=== PATIENT | female | born 1950 | race Caucasian/White ===

== ENCOUNTER 2021-10-04 09:25 | Outpatient (CLI) | payer MEDICARE | END 2021-10-04 09:26 | disposition home or self-care (01) | LOC: CSHCT 09:25 | PROVIDERS: ATTEND Urology | DX: R31.29 Other microscopic hematuria (principal); N13.2 Hydronephrosis with renal and ureteral calculous obstruction; R93.89 Abnormal findings on diagnostic imaging of other specified body structures; K83.9 Disease of biliary tract, unspecified; K80.20 Calculus of gallbladder without cholecystitis without obstruction; K57.30 Diverticulosis of large intestine without perforation or abscess without bleeding; N83.8 Other noninflammatory disorders of ovary, fallopian tube and broad ligament; K44.9 Diaphragmatic hernia without obstruction or gangrene | CPT/HCPCS: 74178 ==

== ENCOUNTER 2021-10-18 12:14 | Outpatient (CLI) | payer MEDICARE | END 2021-10-18 12:15 | disposition home or self-care (01) | LOC: CSHCT 12:14 | PROVIDERS: ATTEND Urology | DX: N20.0 Calculus of kidney (principal); Z96.0 Presence of urogenital implants; R19.03 Right lower quadrant abdominal swelling, mass and lump; K44.9 Diaphragmatic hernia without obstruction or gangrene | CPT/HCPCS: 74176 ==

== ENCOUNTER 2022-03-26 10:06 | Outpatient (CLI) | payer MEDICARE | END 2022-03-26 10:07 | disposition home or self-care (01) | LOC: CSHMAMMO 10:06 | PROVIDERS: ATTEND Family Medicine | DX: Z12.31 Encounter for screening mammogram for malignant neoplasm of breast (principal) | CPT/HCPCS: 77063; 77067 ==

== ENCOUNTER 2022-04-13 15:31 | Outpatient (CLI) | payer MEDICARE | END 2022-04-13 15:32 | disposition home or self-care (01) | LOC: CSHULT 15:31 | PROVIDERS: ATTEND Urology | DX: N20.0 Calculus of kidney (principal); K31.0 Acute dilatation of stomach | CPT/HCPCS: 74018; 76770 ==

== ENCOUNTER 2022-06-15 06:58 | Day surgery (SDC) | payer MEDICARE ==
[2022-06-13 14:39] VITALS: BMI 29.9
[2022-06-15 07:53] LABS: Anion Gap 16 mmol/L (10-20); BUN (Urea Nitrogen) 10 mg/dL (9.8-20.1); Calc. Creatinine Clearance 63 mL/min (70-130); Calcium 9.7 mg/dL (7.8-10.44); Carbon Dioxide 24 mmol/L (23-31); Chloride 103 mmol/L (98-107); Estimated GFR 57; Glucose 115 mg/dL (83-110); Sodium 139 mmol/L (136-145)
[2022-06-15] MEDS ORDERED: PROPOFOL 20 ML ONE (08:13)
[2022-06-15] MEDS ORDERED: Lidocaine 1% MPF 2 ML VIAL ONE (08:14)
[2022-06-18] MEDS ORDERED: FLU VACC QS2022-23(65YR UP)/PF 240 MCG/0.7 ML SYRINGE IM ONE (08:00)
[2022-06-18 11:03] VITALS: BP 136/69; TEMP 97.7
== END 2022-06-15 10:10 | disposition home or self-care (01) ==
LOC: CSHSDC 06:58
PROVIDERS: ATTEND Specialist
DX: I48.19 Other persistent atrial fibrillation (principal); I48.0 Paroxysmal atrial fibrillation; I10 Essential (primary) hypertension; I34.0 Nonrheumatic mitral (valve) insufficiency; E78.2 Mixed hyperlipidemia; I27.21 Secondary pulmonary arterial hypertension; E66.9 Obesity, unspecified; Z68.30 Body mass index [BMI] 30.0-30.9, adult; Z86.711 Personal history of pulmonary embolism; Z79.01 Long term (current) use of anticoagulants; Z79.899 Other long term (current) drug therapy
CPT/HCPCS: 80048; 92960; 93005; 93010; J2704

== ENCOUNTER 2022-07-31 10:14 | Outpatient (CLI) | payer MEDICARE | END 2022-07-31 10:15 | disposition home or self-care (01) | LOC: CSHMAMMO 10:14 | PROVIDERS: ATTEND Family Medicine | DX: Z13.820 Encounter for screening for osteoporosis (principal); E28.39 Other primary ovarian failure; M85.89 Other specified disorders of bone density and structure, multiple sites; Z78.0 Asymptomatic menopausal state | CPT/HCPCS: 77080 ==

== ENCOUNTER → 2022-11-27 | Day surgery (SDC) | payer MEDICARE ==
[~2022-11-27] MED LIST: Glycopyrrolate 0.2 MG/ML 5 ML SYRINGE ONE; Lidocaine 1% (PF) 30 ML VIAL ONE; PHENYLEPHRINE-NS 100 MCG/ML 10 ML SYRINGE ONE; PROPOFOL 20 ML ONE
[2022-11-27 08:47] LABS: Anion Gap 17 mmol/L (10-20); BUN (Urea Nitrogen) 11 mg/dL (9.8-20.1); Calc. Creatinine Clearance 0 mL/min (70-130); Carbon Dioxide 24 mmol/L (23-31); Chloride 105 mmol/L (98-107); Estimated GFR 51; Glucose 116 mg/dL (83-110); Potassium 4.5 mmol/L (3.5-5.1); Sodium 141 mmol/L (136-145)
[2022-11-27 08:59] LABS: INR-International Normal Ratio 3.4; PTT 37.9 sec (22.0-33.0); Prothrombin Time 36.3 sec (9.5-12.1)
== END ==
LOC: CSHSDC 08:02
PROVIDERS: ATTEND Specialist
DX: I48.11 Longstanding persistent atrial fibrillation (principal); I10 Essential (primary) hypertension; E78.2 Mixed hyperlipidemia; I34.0 Nonrheumatic mitral (valve) insufficiency; Z79.01 Long term (current) use of anticoagulants; Z79.899 Other long term (current) drug therapy
CPT/HCPCS: 80048; 85610; 85730; 92960; 93005; 93010; J2001; J2704

== ENCOUNTER 2023-02-01 19:48 | Inpatient (IN) | payer MEDICARE ==
[2023-02-01 21:04] LABS: ALT (SGPT) 11 U/L (8-55); AST (SGOT) 16 U/L (5-34); Albumin 3.8 g/dL (3.4-4.8); Alkaline Phosphatase 92 U/L (40-110); Anion Gap 19 mmol/L (10-20); BUN (Urea Nitrogen) 27 mg/dL (9.8-20.1); Bilirubin, Total 1.5 mg/dL (0.2-1.2); Calc. Creatinine Clearance 0 mL/min (70-130); Calcium 10.1 mg/dL (7.8-10.44); Carbon Dioxide 19 mmol/L (23-31); Chloride 104 mmol/L (98-107); Estimated GFR 31; Globulin 2.6 g/dL (2.4-3.5); Glucose 156 mg/dL (83-110); Lipase 22 U/L (8-78); Magnesium 1.7 mg/dL (1.6-2.6); Potassium 5.7 mmol/L (3.5-5.1); Protein, Total 6.4 g/dL (5.8-8.1); Sodium 136 mmol/L (136-145)
[2023-02-01 21:05] LABS: #Basophils 0.1 10x3/uL (0.0-0.2); #Eosinphils 0.2 10x3/uL (0.0-0.5); #Monocytes 0.2 10x3/uL (0.0-1.1); #Neutrophils 6.5 10x3/uL (1.5-8.4); %Basophils 0.7 % (0.0-2.0); %Eosinophils 2.6 % (0.0-6.0); %Lymphocytes 13.8 % (18.0-47.0); %Monocytes 2.8 % (0.0-10.0); %Neutrophils 79.6 % (40.0-75.0); Hemoglobin 13.6 g/dL (12.0-15.5); Mean Corpuscular HGB CONC 30.1 g/dL (32.0-36.0); Mean Corpuscular Hemoglobin 26.1 pg (27.0-33.0); Mean Corpuscular Volume 86.6 fl (81.6-98.3); RBC Distribution Width 19.7 % (11.5-14.5); Red Blood Cell (RBC) Count 5.22 10x6/uL (3.90-5.03); White Blood Cell (WBC) Count 8.2 10x3/uL (3.5-10.5)
[2023-02-01 21:08] LABS: Prothrombin Time 63.7 sec (9.5-12.1)
[2023-02-01 21:12] LABS: Mean Platelet Volume 10.9 fl (7.4-10.4); Platelet Count 203 10x3/uL (150-450)
[2023-02-01 21:13] LABS: Platelet Clumps SLIGHT; RBC Morph Comment Within Normal Limits
[2023-02-01 21:14] LABS: Platelet Adequacy Comment PLT clumps seen-LOW
[2023-02-01 21:16] LABS: INR-International Normal Ratio 6.1
[2023-02-01 21:23] LABS: CKMB 1.3 ng/mL (0-6.6)
[2023-02-01] MEDS ORDERED: Ondansetron PF 4 MG/2 ML Vial IVP PRN (22:17)
[2023-02-01] MEDS ORDERED: Acetaminophen 325 MG TAB PO PRN (22:17)
[2023-02-01] MEDS ORDERED: Guaifenesin DM 100-10/5 ML UDCUP PO PRN (22:17)
[2023-02-01] MEDS ORDERED: Senokot S 8.6-50 MG TAB PO PRN (22:17)
[2023-02-01] MEDS ORDERED: HYDROcodone/Acetaminophen 5/325 mg Tablet PO PRN (22:17)
[2023-02-01] MEDS ORDERED: Calcium Carbonate 500 MG ChewTAB PO PRN (22:17)
[2023-02-01] MEDS ORDERED: traZODone HCl 50 MG TAB PO PRN (22:21)
[2023-02-01] MEDS ORDERED: Calcium Gluc 4.6 MEQ/10 ML (100 MG/ML) SLOW IVP SCH (22:30)
[2023-02-01] MEDS ORDERED: Sodium Chloride 0.9% 300 ML IV SCH (22:30)
[2023-02-01] MEDS ORDERED: Albumin 25% 25 GM/100 ML BOT IVPB SCH (22:30)
[2023-02-02] MEDS ORDERED: Calcium Gluc 4.6 MEQ/10 ML (100 MG/ML) ONE (00:25)
[2023-02-02] MEDS ORDERED: Albumin 25% 100 ML ONE (00:26)
[2023-02-02 03:26] LABS: Anion Gap 17 mmol/L (10-20); BUN (Urea Nitrogen) 29 mg/dL (9.8-20.1); CK (CPK) 34 U/L (29-168); Calc. Creatinine Clearance 39 mL/min (70-130); Carbon Dioxide 19 mmol/L (23-31); Chloride 106 mmol/L (98-107); Estimated GFR 33; Glucose 118 mg/dL (83-110); Potassium 5.6 mmol/L (3.5-5.1); Sodium 136 mmol/L (136-145)
[2023-02-02 03:39] LABS: INR-International Normal Ratio 5.4; PTT 33.2 sec (22.0-33.0); Prothrombin Time 56.5 sec (9.5-12.1)
[2023-02-02 03:48] LABS: Free T4 (Free Thyroxine) 1.3 ng/dL (0.70-1.48); Thyroid Stimulating Hormone 0.3788 uIU/mL (0.35-4.94)
[2023-02-02 03:53] LABS: #Monocytes 0.2 10x3/uL (0.0-1.1); #Neutrophils 5.5 10x3/uL (1.5-8.4); %Basophils 0.5 % (0.0-2.0); %Eosinophils 0.2 % (0.0-6.0); %Lymphocytes 13.5 % (18.0-47.0); %Monocytes 2.4 % (0.0-10.0); %Neutrophils 83.1 % (40.0-75.0); Hemoglobin 11.6 g/dL (12.0-15.5); Mean Corpuscular HGB CONC 30.5 g/dL (32.0-36.0); Mean Corpuscular Hemoglobin 25.7 pg (27.0-33.0); Mean Corpuscular Volume 84.3 fl (81.6-98.3); Mean Platelet Volume 11.6 fl (7.4-10.4); Platelet Count 148 10x3/uL (150-450); RBC Distribution Width 19.4 % (11.5-14.5); Red Blood Cell (RBC) Count 4.51 10x6/uL (3.90-5.03); White Blood Cell (WBC) Count 6.6 10x3/uL (3.5-10.5)
[2023-02-02 03:57] LABS: CKMB 0.9 ng/mL (0-6.6)
[2023-02-02 04:25] LABS: Platelet Clumps SLIGHT
[2023-02-02] MEDS ORDERED: Sotalol HCl 80 MG TAB PO SCH (09:45)
[2023-02-02] MEDS: Metoprolol Tartrate 25 MG TAB PO SCH ×2 (10:00→20:48)
[2023-02-02] MEDS: Gabapentin 100 MG CAP PO SCH ×2 (10:00→20:42)
[2023-02-02] MEDS ORDERED: Metoprolol Tartrate 25 MG TAB ONE (10:53)
[2023-02-02 11:20] LABS: Anion Gap 13 mmol/L (10-20); BUN (Urea Nitrogen) 31 mg/dL (9.8-20.1); Calc. Creatinine Clearance 39 mL/min (70-130); Calcium 10.1 mg/dL (7.8-10.44); Carbon Dioxide 20 mmol/L (23-31); Chloride 105 mmol/L (98-107); Estimated GFR 33; Glucose 111 mg/dL (83-110); Sodium 133 mmol/L (136-145)
[2023-02-02] MEDS: Atorvastatin Calcium 10 MG TAB PO SCH (20:43)
[2023-02-02] MEDS: Sotalol HCl 80 MG TAB PO SCH (20:43)
[2023-02-02 22:57] LABS: Bilirubin Neg (Negative); Blood, Urine 150 (Negative); Clarity Clear (Clear); Glucose, Urine (Dipstick) Normal (Negative); Ketone, Urine Negative (Negative); Leukocyte 100 (Negative); Nitrite Negative (Negative); Protein, Urine (Dipstick) 30 mg/dl (Neg-Trace); Specific Gravity, Urine 1.025 (1.005-1.030); Urobilinogen Normal mg/dL (Less than 2)
[2023-02-02 23:10] LABS: Bacteria/HPF Rare-Few HPF (None Seen); RBC/HPF 0-3 HPF (0-3)
[2023-02-03 03:34] LABS: #Basophils 0.1 10x3/uL (0.0-0.2); #Monocytes 0.3 10x3/uL (0.0-1.1); #Neutrophils 5.2 10x3/uL (1.5-8.4); %Basophils 0.7 % (0.0-2.0); %Eosinophils 0.4 % (0.0-6.0); %Lymphocytes 22.2 % (18.0-47.0); %Monocytes 4.3 % (0.0-10.0); %Neutrophils 72.1 % (40.0-75.0); Hemoglobin 11.2 g/dL (12.0-15.5); Mean Corpuscular HGB CONC 30.4 g/dL (32.0-36.0); Mean Corpuscular Hemoglobin 25.6 pg (27.0-33.0); Mean Corpuscular Volume 84.4 fl (81.6-98.3); Mean Platelet Volume 11.3 fl (7.4-10.4); Platelet Count 151 10x3/uL (150-450); Red Blood Cell (RBC) Count 4.37 10x6/uL (3.90-5.03); White Blood Cell (WBC) Count 7.2 10x3/uL (3.5-10.5)
[2023-02-03 03:43] LABS: Anion Gap 15 mmol/L (10-20); BUN (Urea Nitrogen) 33 mg/dL (9.8-20.1); Calc. Creatinine Clearance 40 mL/min (70-130); Carbon Dioxide 21 mmol/L (23-31); Chloride 105 mmol/L (98-107); Estimated GFR 34; Glucose 91 mg/dL (83-110); Magnesium 1.6 mg/dL (1.6-2.6); Potassium 4.6 mmol/L (3.5-5.1); Sodium 136 mmol/L (136-145)
[2023-02-03 03:46] LABS: INR-International Normal Ratio 3.3; Prothrombin Time 34.5 sec (9.5-12.1)
[2023-02-03] MEDS: Metoprolol Tartrate 25 MG TAB PO SCH ×2 (08:39→22:35)
[2023-02-03] MEDS: Sotalol HCl 80 MG TAB PO SCH ×2 (08:39→22:36)
[2023-02-03] MEDS: Gabapentin 100 MG CAP PO SCH ×2 (08:39→22:35)
[2023-02-03] MEDS ORDERED: Sodium Chloride 0.9% 1,000 ML IV SCH (09:00)
[2023-02-03] MEDS ORDERED: Magnesium Sulfate 4 GM in Sodium Chloride 0.9% 250 ML 250 ML IVPB SCH (11:15)
[2023-02-03] MEDS: Albumin 25% 25 GM/100 ML BOT IVPB SCH ×2 (11:29→18:20)
[2023-02-03] MEDS: Magnesium 2 GM/50 ML(in water) 2 GM in Premix Bag 1 BAG IVPB SCH ×2 (11:29→12:05)
[2023-02-03] MEDS: Atorvastatin Calcium 10 MG TAB PO SCH (22:35)
[2023-02-04] MEDS: Albumin 25% 25 GM/100 ML BOT IVPB SCH ×2 (00:10→06:03)
[2023-02-04 04:23] LABS: Anion Gap 14 mmol/L (10-20); BUN (Urea Nitrogen) 32 mg/dL (9.8-20.1); Calc. Creatinine Clearance 48 mL/min (70-130); Calcium 9.8 mg/dL (7.8-10.44); Carbon Dioxide 20 mmol/L (23-31); Chloride 107 mmol/L (98-107); Estimated GFR 42; Glucose 89 mg/dL (83-110); Magnesium 2.3 mg/dL (1.6-2.6); Potassium 3.9 mmol/L (3.5-5.1); Sodium 137 mmol/L (136-145)
[2023-02-04] MEDS: Metoprolol Tartrate 25 MG TAB PO SCH ×2 (08:27→08:43)
[2023-02-04] MEDS: Gabapentin 100 MG CAP PO SCH (08:27)
[2023-02-04] MEDS: Sotalol HCl 80 MG TAB PO SCH ×2 (08:27→08:43)
[2023-02-04] MEDS ORDERED: PROPOFOL 200 MG/20 ML VIAL ONE (08:42)
[2023-02-04] MEDS ORDERED: ePHEDrine 50 MG/ML VIAL ONE (08:42)
[2023-02-04 09:40] LABS: INR-International Normal Ratio 1.9; Prothrombin Time 19.7 sec (9.5-12.1)
[2023-02-04 16:59] VITALS: BP 126/76; TEMP 97.8
[2023-02-04] MEDS ORDERED: Warfarin Sodium 2.5 MG TAB PO SCH (17:00)
== END 2023-02-04 18:30 | disposition home or self-care (01) | DRG 683 ==
LOC: CSHERS 19:48 → CSHERHOLD 22:26 → CSHTELE 02-02 11:34
PROVIDERS: ADMIT Student in an Organized Health Care Education/Training Program; ATTEND Internal Medicine
PROC: 5A2204Z Restoration of Cardiac Rhythm, Single (ICD-10-PCS; principal; 2023-02-04)
DX: N17.9 Acute kidney failure, unspecified (principal); I48.11 Longstanding persistent atrial fibrillation; E87.5 Hyperkalemia; E86.0 Dehydration; R77.8 Other specified abnormalities of plasma proteins; I11.0 Hypertensive heart disease with heart failure; I50.9 Heart failure, unspecified; I95.9 Hypotension, unspecified; I34.0 Nonrheumatic mitral (valve) insufficiency; E66.9 Obesity, unspecified; E83.42 Hypomagnesemia; E78.00 Pure hypercholesterolemia, unspecified; Z86.718 Personal history of other venous thrombosis and embolism; Z86.711 Personal history of pulmonary embolism; Z79.899 Other long term (current) drug therapy; Z79.01 Long term (current) use of anticoagulants; Z82.49 Family history of ischemic heart disease and other diseases of the circulatory system; Z68.30 Body mass index [BMI] 30.0-30.9, adult
CPT/HCPCS: 36415; 36416; 71045; 80048; 80053; 81001; 82550; 82553; 83690; 83735; 83880; 84439; 84443; 84484; 85025; 85610; 85730; 92960; 93005; 93010; 94640; J0612; J2704; J3475; J3490; J7030; J7050; J7611; P9047

== ENCOUNTER 2023-08-12 12:32 | Outpatient (CLI) | payer MEDICARE | END 2023-08-12 12:33 | disposition home or self-care (01) | LOC: CSHULT 12:32 | PROVIDERS: ATTEND Urology | DX: N20.0 Calculus of kidney (principal); Z87.442 Personal history of urinary calculi; R79.89 Other specified abnormal findings of blood chemistry | CPT/HCPCS: 74018; 76770 ==

== ENCOUNTER 2023-09-18 09:59 | Observation (INO) | payer MEDICARE ==
[2023-09-18] MEDS ORDERED: dilTIAZem 25 MG/5 ML VIAL ONE (10:37)
[2023-09-18 10:55] LABS: Troponin I 0.019 ng/mL (< 0.028)
[2023-09-18 11:01] LABS: INR-International Normal Ratio 2.9; Prothrombin Time 30.6 sec (9.5-12.1)
[2023-09-18 11:04] LABS: #Basophils 0.1 10x3/uL (0.0-0.2); #Eosinphils 0.1 10x3/uL (0.0-0.5); #Monocytes 0.2 10x3/uL (0.0-1.1); #Neutrophils 4.5 10x3/uL (1.5-8.4); %Basophils 1.2 % (0.0-2.0); %Eosinophils 1.8 % (0.0-6.0); %Lymphocytes 25.9 % (18.0-47.0); %Monocytes 2.6 % (0.0-10.0); %Neutrophils 68.2 % (40.0-75.0); Hematocrit 47.9 % (34.9-44.5); Hemoglobin 15.3 g/dL (12.0-15.5); Mean Corpuscular HGB CONC 31.9 g/dL (32.0-36.0); Mean Corpuscular Hemoglobin 28.1 pg (27.0-33.0); Mean Corpuscular Volume 88.1 fl (81.6-98.3); Platelet Count 63 10x3/uL (150-450); RBC Distribution Width 15.9 % (11.5-14.5); Red Blood Cell (RBC) Count 5.44 10x6/uL (3.90-5.03); White Blood Cell (WBC) Count 6.6 10x3/uL (3.5-10.5)
[2023-09-18 11:23] LABS: Platelet Adequacy Comment PLT clumps seen-ADEQ; RBC Morph Comment Within Normal Limits
[2023-09-18] MEDS ORDERED: PROPOFOL 20 ML ONE (11:31)
[2023-09-18 12:00] LABS: ALT (SGPT) 12 U/L (8-55); AST (SGOT) 16 U/L (5-34); Albumin 3.9 g/dL (3.4-4.8); Alkaline Phosphatase 81 U/L (40-110); Anion Gap 14 mmol/L (10-20); BUN (Urea Nitrogen) 15 mg/dL (9.8-20.1); Bilirubin, Total 1.2 mg/dL (0.2-1.2); Calc. Creatinine Clearance 0 mL/min (70-130); Calcium 9.6 mg/dL (7.8-10.44); Carbon Dioxide 20 mmol/L (23-31); Chloride 111 mmol/L (98-107); Estimated GFR 63; Globulin 2.9 g/dL (2.4-3.5); Glucose 110 mg/dL (83-110); Potassium 4.6 mmol/L (3.5-5.1); Protein, Total 6.8 g/dL (5.8-8.1); Sodium 140 mmol/L (136-145)
[2023-09-18] MEDS ORDERED: Acetaminophen 325 MG TAB PO PRN (12:31)
[2023-09-18] MEDS ORDERED: Ondansetron ODT 4 MG TAB PO PRN (12:31)
[2023-09-18] MEDS ORDERED: Ondansetron PF 4 MG/2 ML Vial IVP PRN (12:31)
[2023-09-18] MEDS ORDERED: Calcium Carbonate 500 MG ChewTAB PO PRN (12:31)
[2023-09-18] MEDS ORDERED: Senokot S 8.6-50 MG TAB PO PRN (12:31)
[2023-09-18] MEDS ORDERED: traZODone HCl 50 MG TAB PO PRN (12:33)
[2023-09-18 14:50] LABS: Troponin I 0.019 ng/mL (< 0.028)
[2023-09-18] MEDS ORDERED: Warfarin Sodium 2.5 MG TAB PO SCH (17:00)
[2023-09-18 17:27] VITALS: BMI 29.0
[2023-09-18 18:30] LABS: Troponin I 0.019 ng/mL (< 0.028)
[2023-09-18] MEDS ORDERED: Sotalol HCl 80 MG TAB PO SCH (21:00)
[2023-09-18] MEDS ORDERED: Atorvastatin Calcium 40 MG TAB PO SCH (21:00)
[2023-09-18] MEDS: Gabapentin 300 MG CAP PO SCH (21:36)
[2023-09-18] MEDS: TICAGRELOR 90 MG TABLET PO SCH (21:38)
[2023-09-19 04:50] LABS: #Basophils 0.1 10x3/uL (0.0-0.2); #Eosinphils 0.1 10x3/uL (0.0-0.5); #Monocytes 0.2 10x3/uL (0.0-1.1); #Neutrophils 3.9 10x3/uL (1.5-8.4); %Basophils 1.1 % (0.0-2.0); %Eosinophils 1.1 % (0.0-6.0); %Lymphocytes 25.8 % (18.0-47.0); %Monocytes 3.7 % (0.0-10.0); %Neutrophils 68.1 % (40.0-75.0); Hematocrit 36.2 % (34.9-44.5); Hemoglobin 11.7 g/dL (12.0-15.5); Mean Corpuscular HGB CONC 32.3 g/dL (32.0-36.0); Mean Corpuscular Hemoglobin 28.3 pg (27.0-33.0); Mean Corpuscular Volume 87.7 fl (81.6-98.3); Mean Platelet Volume 11.9 fl (7.4-10.4); Platelet Count 108 10x3/uL (150-450); RBC Distribution Width 15.8 % (11.5-14.5); Red Blood Cell (RBC) Count 4.13 10x6/uL (3.90-5.03); White Blood Cell (WBC) Count 5.7 10x3/uL (3.5-10.5)
[2023-09-19 04:59] LABS: ALT (SGPT) 13 U/L (8-55); AST (SGOT) 16 U/L (5-34); Albumin 3.2 g/dL (3.4-4.8); Alkaline Phosphatase 65 U/L (40-110); Anion Gap 10 mmol/L (10-20); BUN (Urea Nitrogen) 19 mg/dL (9.8-20.1); Bilirubin, Total 1.1 mg/dL (0.2-1.2); Calc. Creatinine Clearance 74 mL/min (70-130); Calcium 8.8 mg/dL (7.8-10.44); Carbon Dioxide 21 mmol/L (23-31); Chloride 115 mmol/L (98-107); Estimated GFR 75; Globulin 2.2 g/dL (2.4-3.5); Glucose 97 mg/dL (83-110); Potassium 4.1 mmol/L (3.5-5.1); Protein, Total 5.4 g/dL (5.8-8.1); Sodium 142 mmol/L (136-145)
[2023-09-19 05:02] LABS: Prothrombin Time 31.5 sec (9.5-12.1)
[2023-09-19 05:37] LABS: Platelet Clumps SLIGHT
[2023-09-19 05:38] LABS: Platelet Adequacy Comment Appears Decreased; RBC Morph Comment Within Normal Limits
[2023-09-19] MEDS ORDERED: ALPRAZolam 0.25 MG TAB PO PRN (08:18)
[2023-09-19] MEDS ORDERED: Sotalol HCl 80 MG TAB PO SCH (09:00)
[2023-09-19] MEDS ORDERED: Furosemide 40 MG TAB PO SCH (09:00)
[2023-09-19] MEDS ORDERED: Ezetimibe 10 MG TAB PO SCH (09:00)
[2023-09-19 09:01] VITALS: BP 138/74; TEMP 97.9
[2023-09-19] MEDS: Gabapentin 300 MG CAP PO SCH (09:46)
[2023-09-19] MEDS: TICAGRELOR 90 MG TABLET PO SCH (09:47)
[2023-09-19] MEDS ORDERED: Warfarin Sodium 2.5 MG TAB PO SCH (17:00)
[2023-09-20] MEDS ORDERED: Warfarin Sodium 5 MG TAB PO SCH (17:00)
== END 2023-09-19 11:19 | disposition home or self-care (01) ==
LOC: SUATTDRO 09:59 → CSHERS 09:59 → CSHTELE 12:31
PROVIDERS: ADMIT Internal Medicine; ATTEND Internal Medicine
PROC: 5A2204Z Restoration of Cardiac Rhythm, Single (ICD-10-PCS; principal; 2023-09-19)
DX: I48.0 Paroxysmal atrial fibrillation (principal); I11.0 Hypertensive heart disease with heart failure; I50.42 Chronic combined systolic (congestive) and diastolic (congestive) heart failure; I25.10 Atherosclerotic heart disease of native coronary artery without angina pectoris; E78.5 Hyperlipidemia, unspecified; I27.20 Pulmonary hypertension, unspecified; E66.01 Morbid (severe) obesity due to excess calories; Z86.711 Personal history of pulmonary embolism; Z95.5 Presence of coronary angioplasty implant and graft; Z79.01 Long term (current) use of anticoagulants; Z79.899 Other long term (current) drug therapy; Z88.4 Allergy status to anesthetic agent; Z68.29 Body mass index [BMI] 29.0-29.9, adult
CPT/HCPCS: 71045; 80053 ×2; 83735; 83880 ×2; 84484 ×2; 85025 ×2; 85610 ×2; 92960; 93005; 93922; 94760 ×3; 96374; 99152; 99153; 99285; G0378 ×2; 36415; 93010; J2704

== ENCOUNTER 2024-04-14 07:47 | Outpatient (CLI) | payer MEDICARE | END 2024-04-14 07:48 | disposition home or self-care (01) | LOC: CSHCT 07:47 | PROVIDERS: ATTEND Urology | DX: N20.0 Calculus of kidney (principal); J90 Pleural effusion, not elsewhere classified; K44.9 Diaphragmatic hernia without obstruction or gangrene; K80.20 Calculus of gallbladder without cholecystitis without obstruction; R19.03 Right lower quadrant abdominal swelling, mass and lump; K57.30 Diverticulosis of large intestine without perforation or abscess without bleeding | CPT/HCPCS: 74176 ==